=== PATIENT | female | born 1970 | race Caucasian/White ===

== ENCOUNTER 2017-01-24 13:14 | Emergency (ER) | payer OTHER ==
--- NOTE | ~2017-01-24 | ER ---
PATIENT'S NAME: ALBERTO ISAACS [facility] AGE: 46 Y [address] ROOM: [place] [address] LOCATION: [facility] ADMIT DATE: 01/24/2017 ER/Outpatient Report DISCHARGE DATE: 01/24/2017 FAMILY PHYSICIAN: SHAHNAZ MAY MD ATTENDING PHYSICIAN: Sammi Real Time of Arrival: 1314 hours. Time Seen: 1316 hours. IDENTIFICATION: A 46-year-old female. CHIEF COMPLAINT: Chest pain. HISTORY OF PRESENT ILLNESS: The patient is a 46-year-old female with insulin-requiring diabetes and known coronary artery disease, who had stents placed 3 years ago. She presents with right-sided chest pain Monday night that resolved, returned again today, right- sided pain radiating to her right arm associated with shortness of breath, slight nausea, and no vomiting and no diaphoresis. She contacted Dr. Sehlby's office who recommended she be evaluated. The patient said it has been a while since her last heart cath, but she could not remember how long. In review of the records, it looks like she had a heart cath in May 2015 showing patent stents and recommended medical therapy. Currently, at this time, the patient is not having any pain. She did take her nitroglycerin at home with improvement of her pain. PAST MEDICAL HISTORY: ALLERGIES: RECORDS REFLECT SHE IS ALLERGIC TO DEMEROL, ALTHOUGH SHE STATED NO STATED ALLERGIES. CURRENT MEDICATIONS: 1. Metformin 1000 mg b.i.d. 2. Lisinopril 20 mg daily. 3. Carvedilol 12.5 mg b.i.d. 4. Clopidogrel 75 mg daily. 5. Levothyroxine 100 mcg daily. 6. Amlodipine 2.5 mg daily. 7. Tramadol 50 mg daily. 8. Trazodone 50 mg daily. 9. Insulin sliding scale. PATIENT'S NAME: ALBERTO ISAACS [facility] AGE: 46 Y [address] ROOM: [place] [address] LOCATION: [facility] ADMIT DATE: 01/24/2017 ER/Outpatient Report DISCHARGE DATE: 01/24/2017 FAMILY PHYSICIAN: SHAHNAZ MAY MD ATTENDING PHYSICIAN: Sammi eRal MEDICAL PROBLEMS: Diabetes mellitus, insulin requiring; coronary artery disease, status post stent; insomnia; obstructive sleep apnea; nocturnal hypoxia; hypertension; hypothyroidism; obesity. PRIOR SURGERIES: Cardiac catheterization; PCI in 2013 and 2015; cholecystectomy; section; appendectomy; hysterectomy with bilateral salpingo-oophorectomy; incision and drainage of left great toe; colonoscopy; lumpectomy, left breast; tonsillectomy as a child; bilateral carpal tunnel release; right total hip arthroplasty; left total hip arthroplasty. SOCIAL HISTORY: The patient is . Tobacco use, former smoker, but quit. Alcohol, denies. Drug use, denies. FAMILY HISTORY: Mother with diabetes, hypertension, and coronary artery disease. Father of [place]. Brother with diabetes. Another brother with diabetes, [place], and stroke. REVIEW OF SYSTEMS: All systems reviewed and negative other than what is noted in the HPI. PHYSICAL EXAMINATION: VITAL SIGNS: Weight 87.8 kilograms, blood pressure 228/109, pulse 76, respirations 20, temperature 97.7, sats 95% on room air. Recheck of her blood pressure prior to discharge 138/58. GENERAL: A pleasant female, in no acute distress. HEENT: Head; normocephalic, atraumatic. Ears; TMs translucent, both ears. Eyes; pupils equal and reactive to light and accommodation. Extraocular movements intact. Nose, mucosa pink. No lesions or drainage. Mouth, no lesions. Pharynx benign. NECK: Supple. No lymphadenopathy. LUNGS: Clear to auscultation. HEART: Regular rate and rhythm. ABDOMEN: Soft, nondistended, nontender. SKIN: [place], warm, and dry. No lesions or rashes noted. NEURO: The patient is alert and oriented x4. Cranial nerves 2 through 12 grossly intact. Motor strength 5/5 throughout. Sensation is intact to light touch. EXTREMITIES: No lower extremity edema. No calf tenderness. EMERGENCY DEPARTMENT COURSE: An EKG was obtained at 1324 hours; normal sinus rhythm at 74 beats per minute, PATIENT'S NAME: ALBERTO ISAACS [facility] AGE: 46 Y [address] ROOM: [place], [place] [address] LOCATION: [facility] ADMIT DATE: 01/24/2017 ER/Outpatient Report DISCHARGE DATE: 01/24/2017 FAMILY PHYSICIAN: SHAHNAZ MAY MD ATTENDING PHYSICIAN: Sammi Real no acute ST elevation or depression, poor anterior R-wave progression, and no change when compared with prior EKG on 02/22/2016. Repeat EKG at 1536 hours; normal sinus rhythm at 62 beats per minute, no acute ST elevation or depression, poor anterior R-wave progression, and no change when compared to prior EKG earlier today. Sodium 134, potassium 4.0, chloride 100, CO2 of 24, BUN 13, creatinine 0.8, blood sugar 215. Liver enzymes normal. Magnesium 2. CPK 123, CK MB 0.6, troponin I less than 0.040. D-dimer 0.31. ProBNP less than 30. Hemoglobin 15.7, hematocrit 45.8, platelets 303, white count 9.8, normal differential. INR 0.93. Chest x-ray, one view, no acute process. Pending Radiology overread. Two-hour cardiac enzymes; CPK 107, CK-MB less than 0.5, troponin I less than 0.040. IMPRESSION: 1. Chest pain, atypical. 2. Hypertension, improved. PLAN: Discussed the patient and her findings with Dr. Shelby, her square cutter. The patient will be discharged home. Continue her current medications. Nitroglycerin p.r.n. Rest, no exertion. Follow up with Dr. Shelby [facility] [place] on Monday. The patient and her children understand and agree, and all questions have been answered. SAMMI REAL MD CAR/modl /[id number] d: 01/25/17 0128 t: 01/31/17 1013, OUTPATIENT REPORT
[~2017-01-24 13:14] MED LIST: **HUMALOG*100 UNIT/M; ASPIR-TRIN325 MG PO; ASPIRIN (CHILDR81 MG PO; CELEXA20 MG PO; CHLORASEPTIC20 ML; COLACE100 MG PO; COREG12.5 MG PO; CPAP; GLUCOPHAGE1000 MG PO; GLUCOPHAGE500 MG PO; HUMALOG100 UNIT/1 SUB-Q; HUMALOG100 UNIT/3 SUB-Q; HUMULIN N100 UNIT/1 SUB-Q; JANUVIA 100 MG100 MG PO; LANTUS (IN100 UNIT/M SUB-Q; LEVOTHROID (S112 MCG PO; LEVOTHROID(SYN75 MCG PO; LIPITOR40 MG PO; LOPRESSOR25 MG PO; MAG-OX-400(241400 MG PO; MIRALAX17 GM PO; NITROSTAT0.4 MG SL; NORVASC2.5 MG PO; PLAVIX75 MG PO; PRINIVIL (ZESTR20 MG PO; PROTONIX40 MG PO; ROXICODONE 5MG (5 MG PO; TESSALON PERLE100 MG PO; TYLENOL EXTRA500 MG PO; TYLENOL325 MG PO; VALIUM5 MG PO; XARELTO10 MG PO; ZYRTEC10 M1 PO
[2017-01-24 13:50] LABS: BASOPHIL # 0.1 K/uL (0.0-0.2); EOSINOPHIL # 0.7 K/uL (0.0-0.5); EOSINOPHIL % 6.7 %; HEMATOCRIT 45.8 % (33.0-46.0); HEMOGLOBIN 15.7 g/dL (10.0-15.0); IMMATURE GRANULOCYTE % 0.2 %; LYMPHOCYTE # 3.3 K/uL (0.8-4.0); LYMPHOCYTE % 33.9 %; MCH 30.1 pg (27.0-34.0); MCHC 34.3 gm/dL (32.0-36.5); MCV 87.9 fl (83.0-98.0); MONOCYTE # 0.8 K/uL (0.0-1.0); MONOCYTE % 7.8 %; MPV 10.1 fl (9.4-12.4); NEUTROPHIL # (ANC) 4.9 K/uL (1.8-7.8); NEUTROPHIL % 50.4 %; NRBC % 0 /100WBC (0-0.00); PLATELET COUNT 303 K/uL (150-450); RBC 5.21 M/uL (3.50-5.50); RDW-CV 12.1 % (11.9-14.6); WBC 9.8 K/uL (4.0-11.0)
[2017-01-24 13:58] LABS: INR - (THERAPEUTIC) 0.93 (0.92-1.07); PROTIME 9.8 SECONDS (9.8-11.4); PTT 28 SECONDS (25-32)
[2017-01-24 14:10] LABS: ALBUMIN 4.1 gm/dL (3.5-5.0); ALK PHOS 99 IU/L (33-138); ALT 57 IU/L (12-78); AST 37 IU/L (10-40); BLOOD UREA NITROGEN 13 mg/dL (6-24); CALCIUM 9.6 mg/dL (8.5-10.5); CHLORIDE 100 mMol/L (96-110); CO2 24 mMol/L (22-32); CPK 123 IU/L (21-215); CREATININE 0.8 mg/dL (0.5-1.1); ESTIMATED GFR (MDRD EQUATION) > 60; SODIUM 134 mMol/L (135-145); TOTAL BILIRUBIN 0.3 mg/dL (0.0-1.5); TOTAL PROTEIN 8.3 g/dL (6.0-8.4)
[2017-01-24 15:55] LABS: CPK 107 IU/L (21-215)
[2017-02-02] MEDS ORDERED: PRINIVIL (ZESTR20 MG PO (17:18)
[2017-02-02] MEDS ORDERED: PLAVIX75 MG PO (17:19)
[2017-02-02] MEDS ORDERED: ULTRAM50 MG PO (17:21)
[2017-02-02] MEDS ORDERED: NORVASC2.5 MG PO (17:21)
[2017-02-02] MEDS ORDERED: DESYREL50 MG PO (17:21)
[2017-02-02] MEDS ORDERED: LEVEMIR FL100 UNIT/1 SUB-Q (17:24)
[2017-02-02] MEDS ORDERED: TYLENOL PM EX-1 EACH PO (17:26)
[2017-04-07] MEDS ORDERED: ZOCOR20 MG PO (13:54)
[2017-04-09] MEDS ORDERED: LIPITOR80 MG PO (17:48)
[2017-04-09] MEDS ORDERED: COREG12.5 M1 PO (17:51)
[2017-04-09] MEDS ORDERED: PROTONIX40 MG PO (18:27)
== END 2017-01-24 16:24 | disposition disaster alternative care site (69) ==
LOC: GMED 13:14
PROVIDERS: Family Medicine
DX: R07.89 Other chest pain (principal); I10 Essential (primary) hypertension; E11.9 Type 2 diabetes mellitus without complications; E03.9 Hypothyroidism, unspecified; Z86.79 Personal history of other diseases of the circulatory system; Z95.5 Presence of coronary angioplasty implant and graft; E66.9 Obesity, unspecified; Z79.899 Other long term (current) drug therapy; Z90.89 Acquired absence of other organs; Z98.61 Coronary angioplasty status; Z90.49 Acquired absence of other specified parts of digestive tract; Z79.4 Long term (current) use of insulin; Z90.710 Acquired absence of both cervix and uterus; Z98.890 Other specified postprocedural states; Z90.12 Acquired absence of left breast and nipple; G47.33 Obstructive sleep apnea (adult) (pediatric); Z87.891 Personal history of nicotine dependence; Z88.5 Allergy status to narcotic agent

== ENCOUNTER 2017-02-03 08:47 | Outpatient (CLI) | payer OTHER ==
[~2017-02-03] VITALS: Ht 149.9 cm; Wt 87.8 kg
--- NOTE | ~2017-02-03 | CATH ---
Cardiac Diagnostic Report Demographics Patient Name SHITAL Odell Gender Female Date of 1970 Age 46 year(s) Patient Number [id number] Date of Study 02/03/2017 Visit Number [id number] Room Number G63[address] [place] [id number] Ht 149.86 cm Wt 87.8 kg Referring Paulina Primary Physician Physician Jett Performing Heron Benavides MD Secondary Physician Physician Diagnostic Heron Benavides MD Assisting Physician Physician Interventional Physician Drilling Contractor Physician Findings and Conclusions Diagnostic Findings and Conclusion 1. 2 vessel CAD. 2. Patent stents in LAD and CFX. Diagnostic Recommendations 1. Medicinal Therapy. 2. Routine Post Perclose. Procedure Description The patient was brought to the diagnostic cardiac catheterization-EP laboratory in the fasting, non-sedated state. Informed consent was obtained in the written and verbal form after the risks and benefits were explained. The patient had no further questions and agreed to proceed. The planned puncture-incision site(s) were shaved and prepped with ChloraPrep and draped in the usual sterile manner. Conscious sedation, supplemental oxygen, and pain control medications were delivered by a registered nurse under physician guidance. Surface ECG rhythm, blood pressure measurement, and pulse oximetry were monitored throughout the procedure. Arterial access. The access site was infiltrated with lidocaine. The vessel was entered with the Seldinger technique. A sheath was advanced into the vessel and used for catheter placement. Selective left coronary angiography. A catheter was advanced into the left coronary vessel ostium under Fluoroscopic guidance. Contrast was injected by hand. Images were obtained in multiple projections. Selective right coronary angiography. A catheter was advanced into the right coronary vessel ostium under fluoroscopic guidance. Contrast was injected by hand. Images were obtained in multiple projections. Left heart catheterization with ventriculography. A catheter was advanced across the aortic valve to the left ventricle under fluoroscopic guidance. Resting hemodynamics were obtained. With the catheter at the left ventricular apex, contrast was injected. Images were obtained in MARSHALL projection. Post-ventriculography LV pressure was obtained. The catheter was gradually withdrawn into the aorta with continuous pressure recording. Arterial artery hemostasis was achieved. The patient was transferred to a regular nursing floor via cart accompanied by a nurse. The patient left the laboratory in stable condition. Diagnostic Cath Status: Elective Procedure Procedure Type Diagnostic procedure:Ventriculogram:, Left, Angiography:, Coronary Angios, [facility] Indications: Unstable angina. The procedure was explained in detail to the patient. Risks, complications and alternative treatments were reviewed. Written consent was obtained. Medications Reviewed with Patient prior to Procedure. Angiographic Findings Dominance: Mixed Cardiac Arteries and Lesion Findings LMCA: Abnormal.Large ostial spasm. LAD: Normal (0% Stenosis).There is a previous stent on Mid LAD Mid subsection. LCx: Normal (0% Stenosis).Large and co-dominant. Small. OM2 large.There is a previous stent on Mid CX Mid subsection. RCA: Normal (0% Stenosis). Coronary Tree Procedure Data Procedure Date Date: 02/03/2017Start: 11:07 AMEnd: 11:34 AM Entry Locations - Retrograde Percutaneous access was performed through the Right Femoral artery (Primary location). A 6 Fr sheath was inserted. Hemostasis was successfully obtained using Perclose ProGlide ([place]). Closure Comments: Done by Ced Henry.. Procedure Medications Order and Administration + + + +-------+ !Time !Medication !Dosage !Route ! + + + +-------+ !02/03/2017 10:47 AM !Fentanyl !50 mcg !I.V. ! + + + +-------+ !02/03/2017 11:04 AM !Versed !1 mg !I.V. ! + + + +-------+ !02/03/2017 11:07 AM !Versed !1 mg !I.V. ! + + + +-------+ !02/03/2017 11:08 AM !Versed !1 mg !I.V. ! + + + +-------+ !02/03/2017 11:10 AM !Oxygen !2 l/min !NC ! + + + +-------+ !02/03/2017 11:14 AM !Fentanyl !50 mcg !I.V. ! + + + +-------+ !02/03/2017 11:21 AM !Versed !1 mg !I.V. ! + + + +-------+ !02/03/2017 11:21 AM !Fentanyl !50 mcg !I.V. ! + + + +-------+ !02/03/2017 11:28 AM !Oxygen !0 l/min !NC ! + + + +-------+ Devices Used - A6 Fr. BS JL 4 Diag. Catheterwas used for:Left coronary angiography.Unable to cannulate the vessel. - A6 Fr. BS JL 3.5 Diag. Catheterwas used for:Left coronary angiography. - A6 Fr. BS JR 4 Diag. Catheterwas used for:Right coronary angiography. - A6 Fr. BS Angled Pigtail Diag. Catheterwas used for:Left ventriculography. Contrast Material - Isovue [id number] ml Fluoroscopy Time: Diagnostic: 0:00 minutes. Total: 0:00 minutes. Fluoroscopy Dose: Diagnostic: 702 mGy. Total: 702 mGy. Estimated Blood Loss: 3 ml. Medical History Allergies - Other:(Demerol, morphine). - Morphine. - Other:(meperidine). - Other:(meperidine). Risk Factors The patient risk factors include:prior PCI on 03/14/2015; previous GROUP BUR[employer] MACHINE/Stent on 03/14/2015;treated hypercholesterolemia, treated hypertension, family history of premature CAD, insulin-treated diabetes mellitus, last creatinine: 0.8 mg/dl, creatinine clearance: 120.5 ml/min, dyslipidemia, former tobacco use, previous femoral procedure and prior [place] . Admission Data Admission Date: 02/03/2017 Admission Time: 08:47 AM Admit Source: Other Insurance Payors: Private health insurance. Admission Medications + +------+------+ + + + + !Medication !Dosage!Times !Last !Last !Administered !Comments ! ! ! !Per !Delivery !Delivery ! ! ! ! ! !Day !Date !Time ! ! ! + +------+------+ + + + + !Beta Marcel! ! ! ! ! ! ! !(any) ! ! ! ! ! ! ! + +------+------+ + + + + !DAVID ! ! ! ! ! ! ! !Inhibitor ! ! ! ! ! ! ! !(any) ! ! ! ! ! ! ! + +------+------+ + + + + !Nitrates (iv! ! ! ! ! ! ! !or buccal) ! ! ! ! ! ! ! + +------+------+ + + + + !Aspirin ! ! ! ! ! ! ! !(any) ! ! ! ! ! ! ! + +------+------+ + + + + Clinical Evaluation Leading to Procedure - The patient's CAD presentation was assessed as: Stable angina. - The patient's anginal syndrome during the past two weeks was assessed as: Class II according to the [place] Cardiovascular Society Classification System (CCS). Anti-anginal medications were prescribed during the past two weeks. The medications are: Beta Blockers and Ca channel Blockers. [facility] Ventriculography Findings 65% normal function. LV function assessed as:Normal. Hemodynamics Condition: Rest O2 Consumption: Estimated: 174.92Heart Rate: 62 bpm Pressures (mmHg) +-----+ + !Site !Pressure ! +-----+ + !AO !171/89 (123) ! +-----+ + !LV !163/9 ,14 ! +-----+ + !LV !155/6 ,12 ! +-----+ + !LV !174/9 ,19 ! +-----+ + !LV !151/10 ,17 ! +-----+ + !AO !185/93 (133) ! +-----+ + !LV !174/8 ,16 ! +-----+ + Valve Gradients and Areas + +---------+---------+---------+ +---------+ + !Valve !Peak !Mean !Area !Index !Flow !Source ! + +---------+---------+---------+ +---------+ + !Aortic !0 !0 ! ! ! ! ! + +---------+---------+---------+ +---------+ + !Aortic !0 !0 ! ! ! ! ! + +---------+---------+---------+ +---------+ + Shunts Oxygen Values O2 Capacity 213.52 O2 Consumption 174.92 Discharge Data Discharge Date: 02/03/2017 Hospital Status: Outpatient Signatures dtt: Kennedy Shelby (cardio) dtd: 02/03/17 1107 Physician Self Edit
[~2017-02-03 08:47] MED LIST changes: +DESYREL50 MG PO; +LEVEMIR FL100 UNIT/1 SUB-Q; +TYLENOL PM EX-1 EACH PO; +ULTRAM50 MG PO
[2017-02-03] MEDS ORDERED: ISORDIL10 MG PO (12:55)
[2017-04-07] MEDS ORDERED: ZOCOR20 MG PO (13:54)
[2017-04-09] MEDS ORDERED: LIPITOR80 MG PO (17:48)
[2017-04-09] MEDS ORDERED: COREG12.5 M1 PO (17:51)
[2017-04-09] MEDS ORDERED: PROTONIX40 MG PO (18:27)
== END 2017-02-03 14:55 | disposition disaster alternative care site (69) ==
LOC: GPOC 08:47 → GPCU 08:47 → GPOC 09:00
PROC: B2111ZZ Fluoroscopy of Multiple Coronary Arteries using Low Osmolar Contrast (ICD-10-PCS; principal; 2017-02-03)
PROC: 4A023N7 Measurement of Cardiac Sampling and Pressure, Left Heart, Percutaneous Approach (ICD-10-PCS; principal; 2017-02-03)
DX: I25.10 Atherosclerotic heart disease of native coronary artery without angina pectoris (principal); E11.9 Type 2 diabetes mellitus without complications; Z79.4 Long term (current) use of insulin; Z79.84 Long term (current) use of oral hypoglycemic drugs; I10 Essential (primary) hypertension; E78.5 Hyperlipidemia, unspecified; G47.33 Obstructive sleep apnea (adult) (pediatric)
CPT/HCPCS: C1760; J1644; J2001; J2250; J3010; J7030